=== PATIENT | female | born 1950 | race Caucasian/White ===

== ENCOUNTER 2017-05-20 14:24 | Inpatient (IN) | payer BC, OTHER ==
[2017-05-20] MEDS ORDERED: ZOLEDRONIC ACID 4 MG in D5W 100 ML IV ONE (14:37)
[2017-05-20] MEDS ORDERED: ACETAMINOPHEN 325 MG TAB PO PRN (14:47)
[2017-05-20] MEDS ORDERED: ONDANSETRON DISINTEGRATING 4 MG TAB PO PRN (14:47)
[2017-05-20 15:59] LABS: CREATININE 0.8 mg/dL (0.6-1.0)
--- NOTE | 2017-05-20 16:02 | PDGENHP ---
History and Physical - Chief Complaint hypercalcemia - History of Present Illness 66 yo female with h/o hyperlipidemia and RLS presents to hospital for direct admission after outpt labs revealed a calcium level of 13.3. She has multiple lumbar and thoracic vertebral compression fractures, the first of which was diagnosed ~18 months ago after a cough left her with severe back pain. She went on to have several more spontaneous compression fractures. Her bone scan revealed osteopenia, not osteoporosis, so her PCP was perplexed that she was having so many compression fractures. She was referred to Dr. Hill, silver cleaner, and further workup revealed an elevated protein level on 24 hr urine. It's not clear if this was bence baker protein. She was then referred to Dr. Mcadams at [facility], who saw the patient in clinic today and ordered a multiple myeloma workup, which is currently pending. Labs revealed an elevated serum Calcium and the patient is admitted for further management. She notes her serum calcium has been on the rise for the past 6 weeks. She endorses nausea, constipation and is a bit weak, but is mentating clearly. No fevers/chills, CP, SOB, abdominal pain or urinary symptoms. She complains of right shoulder pain and her back pain from her multiple compression fractures is not well controlled on tramadol and lidoderm patch, 5-01/22. She also reports a 14 lb weight loss over the past several weeks. She was previously managed on prednisone for presumed PMR, but this was discontinued in 01/2017. She thinks she gained some weight on Prednisone, but has been losing weight since then. History Information - Allergies/Home Medication List Allergies/Adverse Reactions: Sulfa (Sulfonamide Antibiotics) Allergy (Verified 05/20/17 14:36) fentanyl Allergy (Uncoded 05/20/17 14:36) sulfa Allergy (Uncoded 05/20/17 14:36) I have personally reviewed and updated: family history, medical history, social history, surgical history - Past Medical History Additional medical history: Hyperlipidemia. Restless legs. Multiple lumbar and vertebral compression fractures. ?PMR - Surgical History Additional surgical history: kyphoplasty for compression fracture - Family History Positive for: non-pertinent - Social History Smoking Status: Never smoked Alcohol Use: Rarely Drug Use: None Additional social history: , at bedside. Lives independently. Review of Systems Review of Systems: ROS: 10pt was reviewed & negative except for what was stated in HPI & below Physical Exam Physical Exam: Constitutional: no apparent distress Eyes: PERRL Ears, Nose, Mouth, Throat: moist mucous membranes Cardiovascular: regular rate and rhythym Respiratory: no respiratory distress, clear to auscultation Gastrointestinal: normoactive bowel sounds, soft, non-tender abdomen Skin: warm Musculoskeletal: full muscle strength, other Neurologic: AAOx3 Psychiatric: interacting appropriately Assessment & Plan Assessment: Hypercalcemia - Suspicion for malignancy. MM workup started by Dr. Mcadams. -Check PTH -IVF's, calcitonin, zoledronic acid -repeat Ca level in 3-4 hrs after calcitonin and follow q12h Ca level Multi-level compression fractures - will attempt to obtain records from [place] -poor pain control with lidoderm, tramadol. will increase the latter -add scheduled tylenol Myalgias - Previously diagnosed with PMR, now off prednisone. ?If this is symptom of MM. -check CK given statin use -MM w/u pending Hyperlipidemia - hold statin while until CK resulted Right shoulder pain - check xray at pt's request RLS - cont pramipexole Full code DVT PPLX - mod risk, Lovenox Dispo - obs
[2017-05-20 16:12] LABS: PTH INTACT NO MINERALS 6.6 pg/ml (10.8-79.4)
[2017-05-20] MEDS: NS 1,000 ML IV SCH (17:10)
[2017-05-20] MEDS: CALCITONIN 200 UNITS/ML SYR SC SCH (17:33)
[2017-05-20] MEDS: ACETAMINOPHEN 500 MG TAB PO SCH (17:41)
[2017-05-20 20:30] LABS: CALCIUM 13.5 mg/dL (8.5-10.4)
[2017-05-20 21:24] LABS: CALCIUM 10.9 mg/dL (8.5-10.4)
[2017-05-20] MEDS: PATCH REMOVAL 1 EA PATCH TD SCH (21:48)
[2017-05-21] MEDS: ACETAMINOPHEN 500 MG TAB PO SCH ×3 (01:23→18:43)
[2017-05-21] MEDS: NS 1,000 ML IV SCH (05:18)
[2017-05-21] MEDS: CALCITONIN 200 UNITS/ML SYR SC SCH ×2 (05:32→18:46)
[2017-05-21 09:06] LABS: CALCIUM 10.5 mg/dL (8.5-10.4); CARBON DIOXIDE 19 mEq/l (22-31); CREATININE 0.6 mg/dL (0.6-1.0); GLOMERULAR FILTRATION RATE > 60; GLUCOSE 146 mg/dL (70-100); POTASSIUM 3.9 mEq/L (3.5-5.2); SODIUM 144 mEq/L (134-144)
[2017-05-21 09:26] LABS: ANION GAP 14 mEq/L (8-16); CHLORIDE 111 mEq/L (97-110)
[2017-05-21] MEDS: CHOLECALCIFEROL VIT D3 1,000 UNITS TAB PO SCH (10:34)
[2017-05-21] MEDS: BACLOFEN 20 MG TAB PO SCH ×2 (10:34→21:46)
[2017-05-21] MEDS: LIDOCAINE 5% 1 EA PATCH TD SCH (10:41)
[2017-05-21] MEDS: ENOXAPARIN 40 MG/0.4 ML SYR SC SCH (11:24)
--- NOTE | 2017-05-21 12:04 | ASMTCMCOM ---
CM Note CM Note Notes: Pt admitted with hypercalcemia, recent compression fxs and poorly controlled pain. Oncologist is doing a workup for multiple myeloma. Pt's needs are unclear at this time. C/M to follow for support and DC needs. Date Signed: 05/21/2017 12:04 PM Electronically Signed By:Imani Martinez LCSW
[2017-05-21] MEDS ORDERED: PHENYLEPHRINE/SHK LV/MO/PET,WH 1 APP/GM OINT PR PRN (12:25)
--- NOTE | 2017-05-21 12:31 | SOAPPROG ---
SOAP Progress Note Assessment/Plan: Assessment: 1.) Hypercalcemia in the setting of multiple skeletal fractures, spontaneous, with significant, unexplained lytic lesions, without known underlying malignancy. 2.) Hyperlipidemia 3.) Restless leg syndrome. 4.) Thoracic vertebral body fx, which had been scheduled for Kyphoplasty. Plan: 1.) Skeletal XRay survey 2.) CT of chest/abdomen/pelvis to look for possible occult primary lesion 3.) IVF, Dexamethasone, Calcitonin, Zometa IV, 4.) Follow labs 5.) Consider Kyphoplasty with procedure to obtain marrow sample at time of Kyphoplasty for diagnostic purposes. 6.) 24 hour urine studies 05/21/17 12:33 Subjective: Feels somewhat better today, with mild nausea. Skeletal fx sites somewhat sore. No V/Constipation. Mild ABRAHAM Objective: Pleasant WF, alert and conversant, in NAD, at the bedside. HEENT- anicteric, no oral lesions Neck- supple Chest- clear CVS- RSR, no extra HS, no mass or HSM EXT- trace dependen edema. Reflexes slightly brisk Labs: BUN/CR 10/0.6, CO2 19 Ca++ down slightly Vital Signs Temp Pulse Resp BP Pulse Ox 36.4 C 85 16 137/71 H 96 05/21/17 11:30 05/21/17 11:30 05/21/17 11:30 05/21/17 11:30 05/21/17 11:30 Laboratory Results 05/21/17 08:40 05/20/17 05/21/17 05/22/17 05:59 05:59 05:59 Intake Total 1700 Balance 1700 ICD10 Worksheet Patient Problems: Problems Problem Status Onset Monoclonal gammopathy of undetermined significance Acute - ICD10 Problem Qualifiers (1) Monoclonal gammopathy of undetermined significance
[2017-05-21] MEDS: IBUPROFEN 200 MG TAB PO PRN (15:20)
[2017-05-21] MEDS: PRAMIPEXOLE 0.25 MG TAB PO SCH ×2 (15:20→18:44)
--- NOTE | 2017-05-21 16:35 | HOSPPROG ---
Hospitalist Progress Note Assessment/Plan: 66 yo f w numerous fragility fx and hypercalcemia hypercalcemia: concerning for malignancy PTH low but mot completely suppressed check pth rp coming down w IVF and zoledronic acid fragilty fx: concerning for MM or metastatic disease acute verbtebral compression fx: kyphoplasty to be planned malignancy workup: up to date on cancer screening proph: pharm VTE proph after precudre dispo: inpt Subjective: case d/w dr fields Objective: Vital Signs Temp Pulse Resp BP Pulse Ox 36.6 C 106 H 16 158/66 H 96 05/21/17 15:33 05/21/17 15:33 05/21/17 15:33 05/21/17 15:33 05/21/17 15:33 Laboratory Results 05/21/17 08:40 05/20/17 05/21/17 05/22/17 05:59 05:59 05:59 Intake Total 1700 Balance 1700 - Physical Exam Constitutional: no apparent distress, appears nourished Eyes: PERRL, anicteric sclera Ears, Nose, Mouth, Throat: moist mucous membranes, hearing normal Cardiovascular: regular rate and rhythym, no murmur, rub, or gallop Respiratory: no respiratory distress, no rales or rhonchi Gastrointestinal: normoactive bowel sounds, soft, non-tender abdomen Genitourinary: no bladder fullness, No rizvi in urethra Skin: warm, normal color Musculoskeletal: full muscle strength Neurologic: AAOx3 ICD10 Worksheet Patient Problems: Problems Problem Status Onset Monoclonal gammopathy of undetermined significance Acute
[2017-05-21] MEDS ORDERED: IOPAMIDOL (ISOVUE-300) 100 ML BTL ONE ×2 (16:44→16:46)
[2017-05-21] MEDS ORDERED: PRAMIPEXOLE 0.25 MG TAB PO SCH (18:00)
[2017-05-21] MEDS: ATORVASTATIN CALCIUM 10 MG TAB PO SCH (18:44)
[2017-05-21] MEDS: ONDANSETRON 4 MG/2 ML VIAL IVP PRN (19:42)
[2017-05-21] MEDS ORDERED: ZOLEDRONIC ACID 4 MG in D5W 100 ML IV ONE (21:00)
[2017-05-21] MEDS: PATCH REMOVAL 1 EA PATCH TD SCH (21:46)
[2017-05-22] MEDS: ACETAMINOPHEN 500 MG TAB PO SCH ×3 (01:24→17:58)
[2017-05-22] MEDS: CALCITONIN 200 UNITS/ML SYR SC SCH (04:59)
[2017-05-22] MEDS: NS 1,000 ML IV SCH (07:12)
[2017-05-22] MEDS: ENOXAPARIN 40 MG/0.4 ML SYR SC SCH (08:32)
[2017-05-22] MEDS: BACLOFEN 20 MG TAB PO SCH ×2 (10:54→21:06)
[2017-05-22] MEDS: CHOLECALCIFEROL VIT D3 1,000 UNITS TAB PO SCH (10:55)
[2017-05-22] MEDS: LIDOCAINE 5% 1 EA PATCH TD SCH (10:55)
--- NOTE | 2017-05-22 11:01 | SOAPPROG ---
SOAP Progress Note Assessment/Plan: Assessment: 1.) Hypercalcemia in the setting of multiple skeletal fractures, spontaneous, with significant, unexplained lytic lesions, without known underlying malignancy. 2.) Hyperlipidemia 3.) Restless leg syndrome. 4.) Thoracic vertebral body fx, which had been scheduled for Kyphoplasty. Plan: 1.) Skeletal XRay survey - shows multiple compr. fx. as noted above. 2.) CT of chest/abdomen/pelvis -shows no malignancy, thus working dx. of [place] [employer] Multiple Myeloma. 3.) IVF, Dexamethasone, Calcitonin, Zometa- given on admission, 4.) Follow labs CR is normal at 0.6 today. Ca++ down to 9.1 5.) Discussed Kyphoplasty with patient and with [facility]- Dr. Arjun Walker- he will be able to do this this afternoon, with plan to obtain bone marrow aspirate from vertebral body as part of kyphoplasty procedure- to send for stand bone marrow histopathology and FISH panel/cytogenetics for Multiple Myeloma work up. 6.) 24 hour urine studies to be completed/resulted. 7.) Will order MRI of C spine to evaluate C4 compression fracture,which may have soft tissue component- which may need Rad. Tx to stabilize. 05/22/17 11:05 Subjective: Having no new skeletal pain, fatigued, but reports she feels okay. Objective: Afebrile, VSS as noted here. HEENT- pale, anicteric, no oral lesions Neck- supple Chest- clear, CVS- RSR, no extra HS ABD- soft, NT, BS+, no mass or HSM EXT- minimal dependent edema, skin intact Labs: of note outpt labs at [facility] office: [place] [employer] [address] 0.59 K/L ratio =366.1 Imaging: No lung or renal mass. No intrathoracic or intra-abdominal/pelvic adenopathy. Extensive lytic lesions, with multple sites of rib fractures, and compression Fx at C4, T 5,6,8, skull humeri, and other sites on plain films. Vital Signs Temp Pulse Resp BP Pulse Ox 36.8 C 94 18 142/65 H 94 05/22/17 07:20 05/22/17 07:20 05/22/17 07:20 05/22/17 07:20 05/22/17 07:20 Laboratory Results 05/21/17 08:40 05/21/17 05/22/17 05/23/17 05:59 05:59 05:59 Intake Total 1700 2921 50 Output Total 760 Balance 1700 2921 -172 ICD10 Worksheet Patient Problems: Problems Problem Status Onset Monoclonal gammopathy of undetermined significance Acute - ICD10 Problem Qualifiers (1) Monoclonal gammopathy of undetermined significance
[2017-05-22] MEDS: IBUPROFEN 200 MG TAB PO PRN ×2 (11:05→21:06)
[2017-05-22] MEDS ORDERED: DEXAMETHASONE 10 MG/ML VIAL IVP ONE (11:56)
[2017-05-22] MEDS ORDERED: fentaNYL 100 MCG/2 ML INJ IVP PRN (11:56)
[2017-05-22] MEDS ORDERED: NALOXONE HCL 0.4 MG/ML INJ IVP PRN (11:56)
[2017-05-22] MEDS ORDERED: MIDAZOLAM 2 MG/2 ML VIAL IVP PRN (11:56)
[2017-05-22] MEDS ORDERED: MEPERIDINE 25 MG/ML SYR IVP PRN (11:56)
[2017-05-22] MEDS ORDERED: HEPARIN 10,000 UNIT/10 ML MDV IVP PRN (11:56)
[2017-05-22] MEDS ORDERED: GLUCAGON HCL 1 MG VIAL IVP PRN (11:56)
[2017-05-22] MEDS ORDERED: NS 1,000 ML IV ONE (11:56)
[2017-05-22] MEDS ORDERED: FLUMAZENIL 0.5 MG/5 ML MDV IVP PRN (11:56)
[2017-05-22] MEDS ORDERED: ceFAZolin 2 GM/SWFI 2 GM/20 ML SYR IVP ONE ×2 (11:56→12:15)
[2017-05-22] MEDS ORDERED: ALTEPLASE 2 MG VIAL IVP PRN (11:56)
[2017-05-22] MEDS ORDERED: PROTAMINE SULFATE 50 MG/5 ML VIAL IVP PRN (11:56)
[2017-05-22 12:08] LABS: % IMMATURE GRANULYOCYTES 0.7 % (0.0-1.1); ABSOLUTE IMMATURE GRANULOCYTES 0.06 10^3/uL (0.00-0.10); ADD DIFF? NO; ADD MORPH? NO; ADD SCAN? NO; ATYPICAL LYMPHOCYTE FLAG 10 (0-99); FRAGMENT RBC FLAG 0 (0-99); HEMATOCRIT 30.1 % (38.0-47.0); HEMOGLOBIN 10.4 g/dL (12.6-16.3); LEFT SHIFT FLG 0 (0-99); LIPEMIA HEMOLYSIS FLAG 90 (0-99); MEAN CELL HEMOGLOBIN 32.1 pg (27.9-34.1); MEAN CELL HEMOGLOBIN CONCENTR. 34.6 g/dL (32.4-36.7); MEAN CELL VOLUME 92.9 fL (81.5-99.8); MEAN PLATELET VOLUME 10.4 fL (8.7-11.7); PLATELET CLUMPS FLAG 0 (0-99); PLATELET COUNT 240 10^3/uL (150-400); RED BLOOD CELL COUNT 3.24 10^6/uL (4.18-5.33); RED CELL DISTRIBUTION WIDTH 13.2 % (11.5-15.2)
[2017-05-22 12:15] LABS: APTT 23.3 SEC (23.0-38.0); INR 1.07 (0.83-1.16); PROTIME(PATIENT) 14.1 SEC (12.0-15.0)
--- NOTE | 2017-05-22 12:43 | ASMTCMCOM ---
CM Note CM Note Notes: Reviewed chart and discussed w/RN. Pt may go for kyphoplasty today. PT will see pt tomorrow. DC needs to be determined. Date Signed: 05/22/2017 12:43 PM Electronically Signed By:Melissa Israel RN
[2017-05-22] MEDS: 1/2 NS 1,000 ML IV SCH (13:07)
[2017-05-22] MEDS ORDERED: cefOXitin SODIUM 2 GM in D5W 100 ML IV ONE (13:45)
--- NOTE | 2017-05-22 14:13 | HOSPPROG ---
Hospitalist Progress Note Assessment/Plan: 66 yo f with multiple vertebral compression fractures and hypercalcemia hypercalcemia: concerning for malignancy, normalized with calcitonin, IVF and zoledronic acid. Cont to follow. fragility fractures: concerning for MM or metastatic disease, SPEP suspicious for MM -BM sample today acute vertebral compression fx: kyphoplasty today for thoracic fracture, along with BM biopsy. MRI c-spine for further evaluation of C4 fracture, ?indication for radiation. Discussed with oncology. proph: pharm VTE proph deferred today due to planned intervention dispo: inpt Subjective: Pt feels ok, pain fairly well controlled. No N/V. Eating ok. No fevers. Objective: Vital Signs Temp Pulse Resp BP Pulse Ox 36.2 C 99 16 152/68 H 94 05/22/17 11:16 05/22/17 11:16 05/22/17 11:16 05/22/17 11:16 05/22/17 11:16 Laboratory Results 05/22/17 12:00 05/21/17 08:40 05/21/17 05/22/17 05/23/17 05:59 05:59 05:59 Intake Total 1700 2921 50 Output Total 1160 Balance 1700 2921 -1110 PT 14.1 SEC (12.0-15.0) 05/22/17 12:00 INR 1.07 (0.83-1.16) 05/22/17 12:00 - Physical Exam Constitutional: no apparent distress Eyes: PERRL Ears, Nose, Mouth, Throat: moist mucous membranes Cardiovascular: regular rate and rhythym Respiratory: no respiratory distress, clear to auscultation Gastrointestinal: normoactive bowel sounds, soft, non-tender abdomen Skin: warm Musculoskeletal: full muscle strength Neurologic: AAOx3 Psychiatric: interacting appropriately ICD10 Worksheet Patient Problems: Problems Problem Status Onset Monoclonal gammopathy of undetermined significance Acute
[2017-05-22] MEDS: PRAMIPEXOLE 0.25 MG TAB PO SCH ×2 (16:38→17:59)
[2017-05-22] MEDS: ATORVASTATIN CALCIUM 10 MG TAB PO SCH (17:59)
[2017-05-22] MEDS ORDERED: PRAMIPEXOLE 0.25 MG TAB PO SCH (18:00)
[2017-05-22] MEDS ORDERED: GADOBUTROL 10 ML VIAL IVP ONE (18:28)
[2017-05-22] MEDS: ONDANSETRON 4 MG/2 ML VIAL IVP PRN (21:12)
[2017-05-23] MEDS: PATCH REMOVAL 1 EA PATCH TD SCH ×2 (00:06→20:43)
[2017-05-23] MEDS: 1/2 NS 1,000 ML IV SCH (05:29)
[2017-05-23] MEDS: ACETAMINOPHEN 500 MG TAB PO SCH ×3 (05:29→18:17)
[2017-05-23 05:48] LABS: ANION GAP 13 mEq/L (8-16); CALCIUM 8.9 mg/dL (8.5-10.4); CARBON DIOXIDE 20 mEq/l (22-31); CHLORIDE 111 mEq/L (97-110); CREATININE 0.6 mg/dL (0.6-1.0); GLOMERULAR FILTRATION RATE > 60; GLUCOSE 99 mg/dL (70-100); POTASSIUM 3.5 mEq/L (3.5-5.2); SODIUM 144 mEq/L (134-144)
[2017-05-23] MEDS ORDERED: cefOXitin SODIUM 2 GM in D5W 100 ML IV ONE (07:30)
[2017-05-23] MEDS ORDERED: DEXAMETHASONE 10 MG/ML VIAL IVP ONE (07:45)
[2017-05-23] MEDS ORDERED: BUPIVACAINE 0.25% 30 ML SDV ONE ×2 (07:59→09:09)
--- NOTE | 2017-05-23 08:06 | PDANEPAE ---
ANE History of Present Illness 66 yo female with recent multi fractures, suspected multiple myeloma or diffuse metastatic disease. ANE Past Medical History - Cardiovascular History Hx Hypertension: No Hx Chest Pain: No Hx Palpitations: No - Pulmonary History Hx COPD: No Hx Recent Upper Respiratory Infection: No Hx Oxygen in Use at Home: No Hx Sleep Apnea: Yes Sleep Apnea Screening Result - Last Documented: Positive - Endocrine History Hx Diabetes: No Hypothyroid: No - Renal History Hx Renal Disorders: No - Cancer History Hx Cancer: Yes Cancer History Comment: unkown, suspect MM or metastatic bony disease. ANE Review of Systems Review of Systems: - Systems Constitutional: Reports: no symptoms Gastrointestinal: Reports: nausea Muscolosketal: Reports: other (multi rib and vertebral fx recently) Hematologic/Lymphatic: Reports: anemia ANE Patient History - Allergies Allergies/Adverse Reactions: Sulfa (Sulfonamide Antibiotics) Allergy (Verified 05/20/17 17:38) fentanyl Allergy (Uncoded 05/20/17 17:38) Rash sulfa Allergy (Uncoded 05/20/17 14:36) - Home Medications Home Medications: Acetaminophen [Tylenol ES 500 mg (*)] 500 - 1,000 mg PO Q6 PRN 05/20/17 [Last Taken Unknown] Baclofen [Baclofen 20 mg (*)] 20 mg PO BID 05/20/17 [Last Taken 05/20/17] Cholecalciferol Vit D3 [Vitamin D3 (*)] 1,000 units PO DAILY 05/20/17 [Last Taken Unknown] Herbals/Supplements -Info Only 1 ea PO DAILY 05/20/17 [Last Taken Unknown] Multivitamins [Multivitamin (*)] 1 each PO DAILY 05/20/17 [Last Taken Unknown] Cornelius-3 Fatty Acids [Fish Oil 1000 mg (*)] 1,000 mg PO DAILY 05/20/17 [Last Taken Unknown] Pramipexole Di-HCl [Pramipexole Dihydrochloride] 0.5 mg PO DAILY@18 05/20/17 [ Last Taken 05/19/17] Simvastatin [Zocor] 20 mg PO DAILY@18 05/20/17 [Last Taken 05/19/17] traMADol [Ultram 50 mg (*)] 50 mg PO Q6-8PRN PRN 05/20/17 [Last Taken 05/20/17 14:00] - NPO status NPO Status: no food or drink >8 hours NPO Since - Liquids (Date): 05/22/17 NPO Since - Liquids (Time): 00:00 NPO Since - Solids (Date): 05/22/17 NPO Since - Solids (Time): 00:00 - Anes Hx Anes Hx: no prior problems - Smoking Hx Smoking Status: Never smoked Marijuana use: No - Alcohol Use Alcohol Use: Rarely ANE Labs/Vital Signs - Labs Result Diagrams: 05/22/17 12:00 05/23/17 04:36 - Vital Signs Blood Pressure: 133/64 Heart Rate: 84 Respiratory Rate: 14 O2 Sat (%): 91 Height: 149.23 cm Weight: 62.101 kg ANE Physical Exam - Airway Neck exam: decreased ROM, C-collar in place Mouth exam: normal dental/mouth exam - Pulmonary Pulmonary: clear to auscultation - Cardiovascular Cardiovascular: regular rate and rhythym - ASA Status ASA Status: IV ANE Anesthesia Plan Anesthesia Plan: general endotracheal anesthesia
[2017-05-23] MEDS ORDERED: PROPOFOL 200 MG/20 ML VIAL ONE (08:08)
[2017-05-23] MEDS ORDERED: ROCURONIUM 50 MG/5 ML VIAL ONE (08:45)
[2017-05-23] MEDS ORDERED: LIDOCAINE 2% 5 ML SDV ONE (08:45)
[2017-05-23] MEDS ORDERED: PHENYLEPHRINE HCL 100 MCG/ML SYR ONE ×2 (08:45→09:30)
[2017-05-23] MEDS ORDERED: SUGAMMADEX SODIUM 200 MG/2 ML VIAL IVP ONE (10:24)
--- NOTE | 2017-05-23 10:27 | PDRADPN ---
Radiology Procedure Note Date of Procedure: 05/23/17 Radiologist: Arjun Walker Anesthesiologist: Sabrina Valera MD Anesthesia: GET(General Endotracheal) Pre-op Diagnosis: MGUS Post-op Diagnosis: same Indication: Multiple new compression fractures, debilitating pain Procedure: Vertebroplasty of T5, T6, T7, T8. Needle biopsies of T7 and T8 Finding(s): Cement deposited. CT pending. Inf/Abcess present in the surg proc area at time of surgery?: No EBL: Minimal Complications: Extraosseous cement. Uncertain significance. Will get CT. Specimen(s): Core biopsies and marrow aspiration from T7 and T8. Processed with medical lab director.
[2017-05-23] MEDS ORDERED: PROMETHAZINE HCL 25 MG/ML INJ IVP PRN (10:47)
[2017-05-23] MEDS ORDERED: ONDANSETRON 4 MG/2 ML VIAL IVP PRN (10:47)
[2017-05-23] MEDS ORDERED: ALBUTEROL 3 ML DEYVIAL IH PRN (10:47)
[2017-05-23] MEDS ORDERED: NALOXONE HCL 0.4 MG/ML INJ IVP PRN (10:47)
[2017-05-23] MEDS ORDERED: DIAZEPAM 10 MG/2 ML SYR IVP PRN (10:47)
--- NOTE | 2017-05-23 10:50 | POSTANESTH ---
Post Anesthetic Evaluation Cardiovascular Status: Normal, Stable Respiratory Status: Normal, Stable Level of Consciousness/Mental Status: Can Participate in Eval, Mildly Sleepy, Arousable Pain Control: Adequate, Prn Tx Ordered Nausea/Vomiting Control: Adequate, Prn Tx Ordered Complications Possibly Related to Anesthesia: None Noted
--- NOTE | 2017-05-23 12:42 | SOAPPROG ---
SOM[facility] Progress Note Assessment/Plan: Assessment: 1.) Hypercalcemia in the setting of multiple skeletal fractures, spontaneous, with significant, unexplained lytic lesions, consistent with myeloma. Calcium now normal. Light chain quite elevated, with low quant immunoglobulins 2.) Hyperlipidemia 3.) Restless leg syndrome. 4.) Thoracic vertebral body fx, which had been scheduled for Kyphoplasty today 5. Compression fx c4 abutting the cord Plan: 1.) Skeletal XRay survey - shows multiple compr. fx. as noted above. 2.) CT of chest/abdomen/pelvis -shows no malignancy, thus working dx. of [place] [employer] Multiple Myeloma. 3.) IVF, Dexamethasone, Calcitonin, Zometa- given on admission, 4.) Follow labs CR is normal at 0.6 today. Ca++ down to 9.1 5.) Discussed Kyphoplasty today with [facility]- Dr. Arjun Walker- results pending 6.) 24 hour urine studies to be completed/resulted. 7.) Ask NS to evalaute c spine 05/23/17 12:30 Subjective: Getting kyphoplasty Objective: Vital Signs Temp Pulse Resp BP Pulse Ox 97.7 F 81 26 H 127/57 H 95 05/23/17 11:30 05/23/17 10:42 05/23/17 12:15 05/23/17 12:15 05/23/17 12:15 Laboratory Results 05/22/17 12:00 05/23/17 04:36 05/22/17 05/23/17 05/24/17 05:59 05:59 05:59 Intake Total 2921 1450 Output Total 1960 Balance 2921 -510 PT 14.1 SEC (12.0-15.0) 05/22/17 12:00 INR 1.07 (0.83-1.16) 05/22/17 12:00 ICD10 Worksheet Patient Problems: Problems Problem Status Onset Monoclonal gammopathy of undetermined significance Acute
--- NOTE | 2017-05-23 13:38 | HOSPPROG ---
Hospitalist Progress Note Assessment/Plan: 66 yo f with multiple vertebral compression fractures and hypercalcemia hypercalcemia: concerning for malignancy, normalized with calcitonin, IVF and zoledronic acid. Cont to follow. fragility fractures: concerning for MM or metastatic disease, SPEP suspicious for MM -BM sampled today during kyphoplasty multi-level vertebral compression fx's: kyphoplasty today for thoracic fracture , along with BM biopsy. Discussed with oncology. -neurosurgery consulted for C4 fx with mod-severe canal stenosis, continue soft c-collar for now proph: pharm VTE proph deferred today due to planned intervention dispo: cont inpt Subjective: Pt doing ok post-kyphoplasty. No pain. Wearing soft c collar. No fevers. Poor appetite today. Objective: Vital Signs Temp Pulse Resp BP Pulse Ox 36.6 C 85 18 143/67 H 95 05/23/17 13:30 05/23/17 13:30 05/23/17 13:30 05/23/17 13:30 05/23/17 13:30 Laboratory Results 05/22/17 12:00 05/23/17 04:36 05/22/17 05/23/17 05/24/17 05:59 05:59 05:59 Intake Total 2921 1450 800 Output Total 1960 4 Balance 2921 -510 796 PT 14.1 SEC (12.0-15.0) 05/22/17 12:00 INR 1.07 (0.83-1.16) 05/22/17 12:00 - Physical Exam Constitutional: no apparent distress Eyes: PERRL Ears, Nose, Mouth, Throat: moist mucous membranes Cardiovascular: regular rate and rhythym Respiratory: no respiratory distress Gastrointestinal: normoactive bowel sounds, soft, non-tender abdomen Skin: warm Musculoskeletal: generalized weakness Neurologic: AAOx3 Psychiatric: interacting appropriately ICD10 Worksheet Patient Problems: Problems Problem Status Onset Monoclonal gammopathy of undetermined significance Acute
[2017-05-23] MEDS: BACLOFEN 20 MG TAB PO SCH ×2 (14:36→20:42)
[2017-05-23] MEDS: CHOLECALCIFEROL VIT D3 1,000 UNITS TAB PO SCH (14:36)
[2017-05-23] MEDS: LIDOCAINE 5% 1 EA PATCH TD SCH (16:02)
[2017-05-23 16:39] LABS: % IMMATURE GRANULYOCYTES 0.7 % (0.0-1.1); ABSOLUTE IMMATURE GRANULOCYTES 0.07 10^3/uL (0.00-0.10); ADD DIFF? NO; ADD MORPH? NO; ADD SCAN? NO; ATYPICAL LYMPHOCYTE FLAG 0 (0-99); FRAGMENT RBC FLAG 0 (0-99); HEMATOCRIT 31.6 % (38.0-47.0); HEMOGLOBIN 11.2 g/dL (12.6-16.3); LEFT SHIFT FLG 0 (0-99); LIPEMIA HEMOLYSIS FLAG 90 (0-99); MEAN CELL HEMOGLOBIN 32.6 pg (27.9-34.1); MEAN CELL HEMOGLOBIN CONCENTR. 35.4 g/dL (32.4-36.7); MEAN CELL VOLUME 91.9 fL (81.5-99.8); MEAN PLATELET VOLUME 10.3 fL (8.7-11.7); PLATELET CLUMPS FLAG 0 (0-99); PLATELET COUNT 241 10^3/uL (150-400); RED BLOOD CELL COUNT 3.44 10^6/uL (4.18-5.33); RED CELL DISTRIBUTION WIDTH 13.2 % (11.5-15.2)
[2017-05-23] MEDS: PRAMIPEXOLE 0.25 MG TAB PO SCH (18:16)
[2017-05-23] MEDS: ATORVASTATIN CALCIUM 10 MG TAB PO SCH (18:17)
[2017-05-23] MEDS: traMADol 50 MG TAB PO PRN (18:30)
[2017-05-24] MEDS: ACETAMINOPHEN 500 MG TAB PO SCH ×3 (00:22→17:10)
[2017-05-24 04:51] LABS: ANION GAP 11 mEq/L (8-16); CALCIUM 8.3 mg/dL (8.5-10.4); CARBON DIOXIDE 20 mEq/l (22-31); CHLORIDE 109 mEq/L (97-110); CREATININE 0.6 mg/dL (0.6-1.0); GLOMERULAR FILTRATION RATE > 60; GLUCOSE 107 mg/dL (70-100); POTASSIUM 3.5 mEq/L (3.5-5.2); SODIUM 140 mEq/L (134-144)
[2017-05-24] MEDS: traMADol 50 MG TAB PO PRN ×3 (05:47→20:50)
[2017-05-24] MEDS: CHOLECALCIFEROL VIT D3 1,000 UNITS TAB PO SCH (08:48)
[2017-05-24] MEDS: BACLOFEN 20 MG TAB PO SCH ×2 (08:48→20:49)
[2017-05-24] MEDS: ENOXAPARIN 40 MG/0.4 ML SYR SC SCH (08:50)
[2017-05-24] MEDS: LIDOCAINE 5% 1 EA PATCH TD SCH (08:51)
--- NOTE | 2017-05-24 10:07 | GCON ---
[f rep st] CONSULTATION CONSULTATION/HISTORY AND PHYSICAL CHIEF COMPLAINT: Hypercalcemia, history of multiple myeloma, neck pain. HISTORY OF PRESENT ILLNESS: The patient is a 66-year-old female with a history of hyperlipidemia and ROS, who presents to the hospital for direct admission after outpatient labs revealed a calcium leve l of 13.3. She has had multiple lumbar and thoracic vertebral compression fractures. The first was diagnosed approximately 18 months ago after she simply coughed. She had severe back pain associated with this. She went on to have more spontaneous compression fractures. Her bone scan reveal osteope chloe and osteoporosis. Her PCP referred her to Dr. Hill from Rheumatology for further workup. It was not clear if the protein found in her 24-hour urine study was a Bence- protein. She was then r eferred to Dr. Mcadams at [facility] who saw the patient in clinic and ordered a skylar hawley myeloma workup. She presents to the hospital on this day with thoracic and neck pain. She h ad imaging both of the thoracic and cervical spine. Thoracic spine showed multiple compression fract ures which were treated with kyphoplasty. She also had a noted what appeared to be the C4 pathologic fracture as well. There was stenosis, moderate to severe at this level, as well as other levels in her cervical spine which have stenosis. We were consulted from Neurosurgery for evaluation and treat ment. She states when she is not wearing her soft cervical collar she has a lot of neck pain that ca n be as much as 10/10 pain. When she has her soft cervical collar in place she describes pain at abo ut approximately 2/10 to 3/10. She had some right shoulder pain and back pain, but this is better si nce the kyphoplasties in her thoracic spine. She has also reported a 14-pound weight loss over the past several weeks. She has also been on stero ids. She denies any upper extremity complaints such as numbness, tingling, weakness, or pain. She h as solely neck pain that is increased when she is not wearing her soft cervical collar. No loss of b owel or bladder control. No problems with gait or balance. PAST MEDICAL HISTORY: Significant for hyperlipidemia, multiple myeloma, restless legs, multiple lumb ar and vertebral compression fractures, questionable PMR. PAST SURGICAL HISTORY: Kyphoplasty for compression fractures in the thoracic and lumbar spine. ALLERGIES: Sulfa, fentanyl. MEDICATIONS: Please see med rec form. FAMILY HISTORY: Non-pertinent, reviewed. SOCIAL HISTORY: Patient is a 66-year-old female, who lives in the [place] area. She does not smoke . She rarely uses alcohol. No illicit drug use. She lives independently. REVIEW OF SYSTEMS: Complete review of systems, 10 point, was reviewed and negative except for what i s stated in HPI. PHYSICAL EXAMINATION: GENERAL: This is an awake, alert, oriented female in no acute distress. IRINEO L SIGNS: Most recent, blood pressure 124/57 with a MAP of 79, heart rate of 106, 18 respirations, 95 % on 2 L nasal cannula, and temperature 36.6. HEENT: Head is normocephalic, atraumatic. Pupils are equal, round, reactive to light. EOMs intact. Full visual pavon by confrontation. Ears are paten t. Nose is patent. NECK: Soft and supple. Range of motion was not tested due to the nature of inj ury. RESPIRATORY AND CARDIAC: Deferred. ABDOMEN: Soft, nontender. No peritoneal signs. and r ectal deferred. NEURO: Patient is awake, alert, oriented to name, place, location, date, time, and situation. Memory is intact to immediate, past, and current events. Speech; no aphasia, dysarthria, dysphonia. Cranial nerves 2-12 are grossly intact. Motor; patient has 5/5 strength in all muscle g roups of bilateral upper and lower extremities to include deltoids, biceps, triceps, brachioradialis, wrist flexors, extensors, courtesy clerk, intrinsic fingers, iliopsoas, quadriceps, hamstring, plantar flexion , dorsiflexion, EHL testing. Sensation is grossly intact to light touch throughout all dermatome dis tributions upper and lower extremities. Negative straight leg raise. Negative DARIUSZ test. Reflexes of biceps, triceps, brachioradialis, knee jerks, and ankle jerks are 2+/4. Toes are downgoing bilat erally. Erazo's negative. Babinski negative. No clonus. MEDICAL DECISION MAKING/DIAGNOSTIC STUDIES: Laboratory tests 05/23/2017, show a white count 10.40 wi th H and H 11.2 and 31.6, with a platelet count of 241. Coags on 05/22/2017, PT of 14.1, INR of 1.07 , PTT of 23.3. Chemistry on 05/24/2017, sodium 140, potassium 3.5, chloride 109, CO2 20, BUN 12, cre atinine 0.6, and a glucose 107. Bone osseous survey noted, which showed widespread osseous metastatic disease with numerous lytic les ions, an area of pathologic fracture. Findings most worrisome for multiple myeloma. Abdominal CT ob tained 05/21/2017, shows bilateral subsegmental atelectasis versus parenchymal fibrosis, trace right pleural effusion. There is no evidence of intrathoracic adenopathy. Widespread osseous metastatic d isease was noted. Mild antral gastric wall thickening noted. CT scan of the chest as noted above. MRI of the cervical spine 05/22/2017, shows pathologic compression fracture at C4 as well as T5 and T 6. There is [id number] spinal canal narrowing at the level C4 with no significant spinal can al narrowing associated with fractures at T5 and T6. Multiple osseous lesions compatible with a hist ory of multiple myeloma. Degenerative changes C3-4, 4-5, 5-6, 6-7, with a pathologic fracture noted as above at C4. Thoracic spine CT shows definitely good results from a 4-level thoracic vertebral augmentation. Mult iple lytic bone lesions suspicious for multiple myeloma, as noted prior. IMPRESSION: 1. Multiple myeloma. 2. Thoracic compression fractures treated by IR with kyphoplasties at multiple levels. 3. Neck pain with pathologic C4 compression fracture, with [id number]-br-tlbvas central stenosis. Deg enerative changes noted below at C5-6 and C6-7 of the cervical spine. PLAN AND DISCUSSION: The patient is a 66-year-old female who was admitted to Internal Medicine [facility]. Oncology is on board, as well as Interventional Radiology. She underwent a 4-level vertebroplas ty in her thoracic spine. She states she is much better with regard to her thoracic spine pain, as w ell as some shoulder pain that she had. She has isolated neck pain at this time. She has no pain in her upper extremities. No numbness, tingling, or weakness in her upper extremities. The neck pain is worse without her cervical collar at a 10 out of 10. She has a soft cervical collar in place and states when she is wearing this her neck pain drops to approximately 2/[address] 3/[address]. Dr[address] Angel and Michele monterroso review her images. He will see her later this morning when her is present as well. We wi ll develop a final plan accordingly. All questions and concerns were answered. Patient understands and agrees. /[id number]/MODL
--- NOTE | 2017-05-24 11:16 | SOAPPROG ---
[facility] Progress Note Assessment/Plan: Assessment: 1.) Hypercalcemia in the setting of multiple skeletal fractures, spontaneous, with significant, unexplained lytic lesions, consistent with myeloma. Calcium now normal. Light chain quite elevated, with low quant immunoglobulins 2.) Hyperlipidemia 3.) Restless leg syndrome. 4.) Thoracic vertebral body fx, better post kyphoplasty 5. Compression fx c4 abutting the cord Plan: 1.) Skeletal XRay survey - shows multiple compr. fx. as noted above. 2.) CT of chest/abdomen/pelvis -shows no malignancy, thus working dx. of [place] [employer] Multiple Myeloma. I feel we should start some treatment, will begin Dex 40 mg daily times 2 days and give shot of velcade today, discussed with pt 3.) IVF, Dexamethasone, Calcitonin, Zometa- given on admission, 4.) Follow labs CR is normal, Ca++ normal 5.) Kyphoplasty done yesterday with improvement, biopsy pending 6.) 24 hour urine studies to be completed/resulted,spep pending 7.) Ask NS to evaluate c spine 05/23/17 12:30 05/24/17 11:06 Subjective: Back better, neck still an issue Objective: Vital Signs Temp Pulse Resp BP Pulse Ox 97.8 F 106 H 18 124/57 H 95 05/24/17 08:33 05/24/17 08:33 05/24/17 08:33 05/24/17 08:33 05/24/17 08:33 Laboratory Results 05/23/17 16:24 05/24/17 04:15 05/23/17 05/24/17 05/25/17 05:59 05:59 05:59 Intake Total 1450 2654 Output Total 1960 2504 Balance -510 150 PT 14.1 SEC (12.0-15.0) 05/22/17 12:00 INR 1.07 (0.83-1.16) 05/22/17 12:00 Physical Exam - Physical Exam General Appearance: alert Respiratory: lungs clear, normal breath sounds Cardiac/Chest: regular rate, rhythm Abdomen: normal bowel sounds, non-tender ICD10 Worksheet Patient Problems: Problems Problem Status Onset Monoclonal gammopathy of undetermined significance Acute
--- NOTE | 2017-05-24 11:55 | HOSPPROG ---
Hospitalist Progress Note Assessment/Plan: 66 yo f with multiple vertebral compression fractures and hypercalcemia hypercalcemia: likely related to malignancy, normalized with calcitonin, IVF and zoledronic acid. Cont to follow. fragility fractures: concerning for MM or metastatic disease, SPEP suspicious for MM -BM sampled yesterday during kyphoplasty, results pending multi-level vertebral compression fx's: kyphoplasty yesterday for thoracic fracture, along with BM biopsy. Discussed with oncology. -neurosurgery consulted for C4 fx with mod-severe canal stenosis, continue soft c-collar for now presumed MM: to start tx per onc, close f/u planned proph: lovenox dispo: cont inpt, likely home in am Subjective: Pt feels ok. Pain fairly well controlled. Doing better today, up in chair. Weakness and nausea are improved. Objective: Vital Signs Temp Pulse Resp BP Pulse Ox 36.6 C 106 H 18 124/57 H 95 05/24/17 08:33 05/24/17 08:33 05/24/17 08:33 05/24/17 08:33 05/24/17 08:33 Laboratory Results 05/23/17 16:24 05/24/17 04:15 05/23/17 05/24/17 05/25/17 05:59 05:59 05:59 Intake Total 1450 2654 Output Total 1960 2504 Balance -510 150 PT 14.1 SEC (12.0-15.0) 05/22/17 12:00 INR 1.07 (0.83-1.16) 05/22/17 12:00 - Physical Exam Constitutional: no apparent distress Eyes: PERRL Ears, Nose, Mouth, Throat: moist mucous membranes Cardiovascular: regular rate and rhythym Respiratory: no respiratory distress Gastrointestinal: normoactive bowel sounds, soft, non-tender abdomen Skin: warm Musculoskeletal: full muscle strength Neurologic: AAOx3 Psychiatric: interacting appropriately ICD10 Worksheet Patient Problems: Problems Problem Status Onset Monoclonal gammopathy of undetermined significance Acute
[2017-05-24] MEDS: DEXAMETHASONE 4 MG TAB PO SCH (12:37)
--- NOTE | 2017-05-24 12:52 | ASMTCMCOM ---
CM Note CM Note Notes: Reviewed chart regarding discharge plan, pt's progress. Per MD notes pt's hypercalcemia likely secondary to malignancy, results pending. MD anticipates pt will likely discharge home independently when stable. PT/OT recs pending (PT unable to see 05/23, pt in surgery). CM will cont to follow for potential needs. Current discharge plan: TBD Date Signed: 05/24/2017 12:51 PM Electronically Signed By:Amelia James RN
[2017-05-24] MEDS ORDERED: BORTEZOMIB SC SCH (13:00)
[2017-05-24] MEDS: PRAMIPEXOLE 0.25 MG TAB PO SCH (17:10)
[2017-05-24] MEDS: ATORVASTATIN CALCIUM 10 MG TAB PO SCH (17:10)
[2017-05-24] MEDS: PATCH REMOVAL 1 EA PATCH TD SCH (21:01)
[2017-05-25] MEDS: ACETAMINOPHEN 500 MG TAB PO SCH ×2 (01:35→09:14)
[2017-05-25 04:53] LABS: % IMMATURE GRANULYOCYTES 0.7 % (0.0-1.1); ABSOLUTE IMMATURE GRANULOCYTES 0.07 10^3/uL (0.00-0.10); ADD DIFF? NO; ADD MORPH? NO; ADD SCAN? NO; ATYPICAL LYMPHOCYTE FLAG 0 (0-99); FRAGMENT RBC FLAG 0 (0-99); HEMOGLOBIN 9.7 g/dL (12.6-16.3); LEFT SHIFT FLG 0 (0-99); LIPEMIA HEMOLYSIS FLAG 90 (0-99); MEAN CELL HEMOGLOBIN 31.7 pg (27.9-34.1); MEAN CELL HEMOGLOBIN CONCENTR. 34.6 g/dL (32.4-36.7); MEAN CELL VOLUME 91.5 fL (81.5-99.8); MEAN PLATELET VOLUME 10.7 fL (8.7-11.7); PLATELET CLUMPS FLAG 10 (0-99); PLATELET COUNT 226 10^3/uL (150-400); RED BLOOD CELL COUNT 3.06 10^6/uL (4.18-5.33); RED CELL DISTRIBUTION WIDTH 13.2 % (11.5-15.2)
[2017-05-25 08:30] VITALS: RESP 18; TEMP 98
[2017-05-25] MEDS: BACLOFEN 20 MG TAB PO SCH (09:13)
[2017-05-25] MEDS: ENOXAPARIN 40 MG/0.4 ML SYR SC SCH (09:13)
[2017-05-25] MEDS: CHOLECALCIFEROL VIT D3 1,000 UNITS TAB PO SCH (09:13)
[2017-05-25] MEDS: LIDOCAINE 5% 1 EA PATCH TD SCH (09:14)
--- NOTE | 2017-05-25 10:10 | NEUSURGPN ---
Assessment/Plan: 66y/o female with multiple compression fx, multiple myeloma and cervical stenosis. Cervicalgia improved with soft cervical collar. -Continue soft cervical collar -[place] collar okay for shower -PT/OT -Optimize pain management -Will sign off. Please have patient follow up with Dr. Angel in 3-4 week. Please have them call [phone]. Will have her obtain c spine xrays prior to that appointment. Subjective: neck pain improved with soft collar. Denies any arm numbness, tingling, pain or weakness. Objective: NAD A&Ix3 MAEx4 5/5 and equal in BUE and BLE. Sensation intact - Physician Discussed Patient with : [facility] Physical Exam - Vitals, I&O, Labs I and O 05/24/17 05/25/17 05/26/17 05:59 05:59 05:59 Intake Total 2654 2300 Output Total 2504 3050 400 Balance 150 -750 -400 Weight 62.101 kg Intake: Oral (ml) 950 2300 IV Intake (ml) 800 IV Infused (ml) 904 1/2 Ns 1,000 ml @ 75 mls/ 904 hr IV CONT SPENCER Rx#: [id number] Output: Urine (ml) 2500 3050 400 Toilet 2500 3050 400 Estimated Blood Loss (ml) 4 Other: Number of Voids Toilet 1 1 Vital Signs Temp Pulse Resp BP Pulse Ox 36.6 C 112 H 18 139/66 H 95 05/25/17 08:29 05/25/17 08:29 05/25/17 08:29 05/25/17 08:29 05/25/17 08:29 Laboratory Results 05/25/17 04:16 05/24/17 04:15 ICD10 Worksheet Patient Problems: Problems Problem Status Onset Monoclonal gammopathy of undetermined significance Acute
[2017-05-25 11:04] VITALS: BP 137/56; O2SAT 94
[2017-05-25] MEDS: DEXAMETHASONE 4 MG TAB PO SCH (12:55)
--- NOTE | 2017-05-25 12:59 | HOSPPROG ---
Hospitalist Progress Note Assessment/Plan: 66 yo f with multiple vertebral compression fractures and hypercalcemia hypercalcemia: likely related to malignancy, normalized with calcitonin, IVF and zoledronic acid. Cont to follow. fragility fractures: concerning for MM or metastatic disease, SPEP suspicious for MM -BM sampled during kyphoplasty, results pending multi-level vertebral compression fx's: kyphoplasty yesterday for thoracic fracture, along with BM biopsy. Discussed with oncology. -neurosurgery consulted for C4 fx with mod-severe canal stenosis, continue soft c-collar for now presumed MM: to start tx per onc, close f/u planned proph: lovenox dispo: cont inpt, likely this afternoon or tomorrow, waiting for onc f/u Objective: Vital Signs Temp Pulse Resp BP Pulse Ox 36.6 C 79 18 137/56 H 94 05/25/17 11:03 05/25/17 11:03 05/25/17 11:03 05/25/17 11:03 05/25/17 11:03 Laboratory Results 05/25/17 04:16 05/24/17 04:15 05/24/17 05/25/17 05/26/17 05:59 05:59 05:59 Intake Total 2654 2300 Output Total 2504 3050 400 Balance 150 -750 -400 PT 14.1 SEC (12.0-15.0) 05/22/17 12:00 INR 1.07 (0.83-1.16) 05/22/17 12:00 ICD10 Worksheet Patient Problems: Problems Problem Status Onset Monoclonal gammopathy of undetermined significance Acute
[2017-05-25] MEDS: traMADol 50 MG TAB PO PRN (13:01)
[2017-05-25 13:09] VITALS: PULSE 88
--- NOTE | 2017-05-25 14:12 | SOAPPROG ---
SOAP Progress Note Assessment/Plan: A/P: 1. Myeloma: path pending, but compression fxs, hypercalcemia, elevated IgG and kappa light chains consistent. Received Velcade yesterday and Dex 40 mg yesterday and today. - has appt with Dr. Pema Abebe at 1:30 p.m. and will plan to administer Velcade at that visit 2. Hypercalcemia: improved. Received 2 doses Zometa (05/20, 05/21). 3. Vertebral compression fxs: kyphoplasty T5-8. C4 compression fx with retropulsion. Neurosurg has seen and recommends conservative management. Pain improved in soft collar. Ok to d/c from onc standpoint when hospitalist feels appropriate. 05/25/17 14:08 Subjective: S: Feeling much better, more like herself. Pain is primarily now in ribs, not back. No nausea. O: VS reviewed. Gen: A&O, NAD. Lungs: breathing comfortably. Skin: no erythema at Velcade injxn site. Neuro: grossly nonfocal. Labs: Laboratory Tests 05/24/17 05/25/17 04:15 04:16 WBC 9.43 Hgb 9.7 L Plt Count 226 Sodium 140 Potassium 3.5 Chloride 109 Carbon Dioxide 20 L BUN 12 Creatinine 0.6 Calcium 8.3 L 24 UPEP pending. Elevated IgG, elevated k/L ratio. Objective: Vital Signs Temp Pulse Resp BP Pulse Ox 36.6 C 88 18 137/56 H 94 05/25/17 11:03 05/25/17 11:20 05/25/17 11:03 05/25/17 11:20 05/25/17 11:20 Laboratory Results 05/25/17 04:16 05/24/17 04:15 05/24/17 05/25/17 05/26/17 05:59 05:59 05:59 Intake Total 2654 2300 Output Total 2504 3050 400 Balance 150 -750 -400 PT 14.1 SEC (12.0-15.0) 05/22/17 12:00 INR 1.07 (0.83-1.16) 05/22/17 12:00 ICD10 Worksheet Patient Problems: Problems Problem Status Onset Monoclonal gammopathy of undetermined significance Acute
[2017-05-25 15:42] LABS: FINAL DIAGNOSIS See Comments; MICROSCOPIC DESCRIPTION See Comments; SPECIAL STUDIES See Comments
[2017-05-25 15:57] LABS: FINAL DIAGNOSIS See Comments; MICROSCOPIC DESCRIPTION See Comments; SPECIAL STUDIES See Comments
--- NOTE | 2017-05-26 03:39 | GDS ---
[f rep st] DISCHARGE SUMMARY DISCHARGE DIAGNOSES: 1. Hypercalcemia likely secondary to malignancy, normalized. 2. Multiple fragility fractures, including multilevel vertebral compression fractures, status post k yphoplasty. 3. Presumed multiple myeloma based on elevated IgG and kappa light chain in the setting of compressi on fractures and hypercalcemia, status post Velcade and dexamethasone. 4. Chronic pain secondary to multiple fragility fractures. HISTORY: For details, please see the history and physical dated May 20, 2017. In brief, the zakiya castanon is a 66-year-old female, who began suffering from spontaneous compression fractures, 1 and a sheron f years ago, who presents to the hospital after initial consult with Oncology, revealed hypercalcemia on baseline labs. She was admitted to the hospital for further management of hypercalcemia, and fur ther workup for malignancy etiology. HOSPITAL COURSE: The patient was admitted to the Cancer Care Unit. Her calcium on admission was 13. 3. She did have some symptoms including nausea, fatigue, and constipation. She was treated with IV zoledronic acid, IV fluids and calcitonin. Her calcium trended down and is normal at the time of dis charge. Regarding her multiple multilevel compression fractures, a CT scan of her chest and abdomen was performed. She was found to have an additional acute thoracic compression fracture and underwent kyphoplasty for this. A bone marrow sample was obtained during her kyphoplasty procedure, and patho logy is pending. In addition, she was found to have an acute C4 compression fracture with retropulsi on. Neurosurgery consult was obtained and conservative therapy was recommended. The patient is main tained in a soft cervical collar, and will follow up with Neurosurgery. She received Velcade and dex amethasone. DISPOSITION: Patient is discharged home in stable condition. FOLLOWUP: 1. Dr. Kemar Mcadams, [facility], May 27 at 1:[address] Zeeshan Angel, Neurosurgery. 3. Dr. Lupe Rao, primary care. DISCHARGE MEDICATIONS: Please see [facility] for completed outpatient medication list. New medications on discharge include: 1. Tramadol 75 mg p.o. q.6 hours p.r.n. 2. Lidoderm 5% patch, 2 transdermal daily, #60, no refills. 3. Tylenol and ibuprofen. Continue other outpatient medications as previously prescribed. /[id number]/MODL
[2017-05-27 13:46] LABS: A/G RATIO URINE 0.06; ALBUMIN URINE 5 %; ALPHA-2 GLOBULIN URINE 6 %; BETA-GLOBULIN URINE 5 %; COLLECTION DURATION PEU 24 h; CONCENTRATION PEU 44 mg/dL; GAMMA-GLOBULIN URINE 83 %; M SPIKE 2 934 mg/24 h; URINE VOLUME PRU 2950 mL
[2017-05-28 07:37] LABS: IMMUOFIXATION URINE REFLEX See Comments
== END 2017-05-25 16:21 | disposition home or self-care (01) | DRG 516 ==
LOC: F1N 15:56 → INTOOBSV 15:56 → PREOBSVTOIN 16:00 → OBSVTOIN 05-22 11:23
PROVIDERS: ADMIT Hospitalist; ATTEND Hospitalist
PROC: 0PU43JZ Supplement Thoracic Vertebra with Synthetic Substitute, Percutaneous Approach (ICD-10-PCS; principal; 2017-05-23 10:42)
PROC: 07DS3ZX Extraction of Vertebral Bone Marrow, Percutaneous Approach, Diagnostic (ICD-10-PCS; principal; 2017-05-23 10:42)
PROC: 3E03305 Introduction of Other Antineoplastic into Peripheral Vein, Percutaneous Approach (ICD-10-PCS; 2017-05-24)
DX: M84.58XA Pathological fracture in neoplastic disease, other specified site, initial encounter for fracture (principal); C90.00 Multiple myeloma not having achieved remission; E83.52 Hypercalcemia; E78.5 Hyperlipidemia, unspecified; M25.511 Pain in right shoulder; M54.2 Cervicalgia; G25.81 Restless legs syndrome; Z88.2 Allergy status to sulfonamides
CPT/HCPCS: 84166-90; 85060-90; 88184-90; 88185-91; 88271-90; 88275-90; 88291-90; 97116-GP; 97161-GP; 97166-GO; 97535-GO; A9585; G0378; G8978-GP-CJ; G8979-GP-CI; G8987-GO-CK; G8988-GO-CI; J0630; J0690; J0694; J1100; J1650; J2370; J2405; J2704; J3489; J9041; Q9967

== ENCOUNTER → 2017-07-27 | Outpatient (CLI) | payer BC, OTHER | LOC: FIMAGING 13:18 | PROVIDERS: ATTEND Neurological Surgery | DX: M48.52XD Collapsed vertebra, not elsewhere classified, cervical region, subsequent encounter for fracture with routine healing (principal); M50.322 Other cervical disc degeneration at C5-C6 level ==

== ENCOUNTER → 2018-04-14 | Outpatient (CLI) | payer BC, OTHER ==
[~2018-04-14] MED LIST: GADOBUTROL 10 ML VIAL IVP ONE
== END ==
LOC: FIMAGING 06:46
PROVIDERS: ATTEND Internal Medicine Hematology & Oncology
DX: R94.02 Abnormal brain scan (principal); R51 Headache; C90.01 Multiple myeloma in remission; D47.2 Monoclonal gammopathy; H93.19 Tinnitus, unspecified ear
CPT/HCPCS: 82565-PO; A9585